=== PATIENT | female | born 1985 | race Caucasian/White ===

== ENCOUNTER 2023-11-03 08:45 | Outpatient (CLI) | payer MEDICAID | END 2023-11-03 23:59 | disposition home or self-care (01) | LOC: RAD 08:45 | PROVIDERS: ATTEND Neuromusculoskeletal Medicine & OMM | DX: H53.9 Unspecified visual disturbance (principal) | CPT/HCPCS: 95816 ==

== ENCOUNTER 2024-02-16 08:07 | Outpatient (CLI) | payer MEDICAID | END 2024-02-16 23:59 | disposition home or self-care (01) | LOC: RAD 08:07 | PROVIDERS: ATTEND Neuromusculoskeletal Medicine & OMM | DX: R55 Syncope and collapse (principal) | CPT/HCPCS: 95816 ==